=== PATIENT | female | born 1990 | race Caucasian/White ===

== ENCOUNTER 2018-11-11 07:30 | Inpatient (IN) | payer BC ==
[2018-11-11] MEDS ORDERED: Lidocaine 1% 50 ML MDV INJECT PRN (08:01)
[2018-11-11] MEDS ORDERED: Sodium Chloride 0.9% 10 ML Syringe FLUSH PRN (08:01)
[2018-11-11] MEDS ORDERED: Ondansetron 4 MG/2 ML SDV IVPUSH PRN (08:01)
[2018-11-11] MEDS ORDERED: Sodium Chloride 0.9% 2.5 ML Syringe FLUSH PRN (08:01)
[2018-11-11] MEDS ORDERED: Methylergonovine 0.2 MG/1 ML Amp IM PRN (08:01)
[2018-11-11] MEDS ORDERED: Nalbuphine 10 MG/1 ML Vial IVPUSH PRN (08:01)
[2018-11-11] MEDS ORDERED: Water For Irrigation,Sterile 1,000 ML Container IRR PRN (08:01)
[2018-11-11] MEDS ORDERED: Sodium Chloride 0.9% 10 ML SDV IV PRN (08:01)
[2018-11-11] MEDS ORDERED: Butorphanol 1 MG/ML SDV IVPUSH PRN (08:01)
[2018-11-11] MEDS ORDERED: Carboprost Tromethamine 250 MCG/1 ML Amp IM PRN (08:01)
[2018-11-11] MEDS ORDERED: Tranexamic Acid 1,000 MG in Sodium Chloride 0.9% 100 ML IV PRN (08:01)
[2018-11-11] MEDS ORDERED: Misoprostol 200 MCG Tab PO PRN (08:01)
[2018-11-11] MEDS ORDERED: Misoprostol 25 MCG (1/4 of 100 MCG) Tab VAG PRN (08:05)
[2018-11-11] MEDS ORDERED: Terbutaline 1 MG/ML SDV SUBCUT PRN (08:05)
[2018-11-11] MEDS ORDERED: Oxytocin/0.9 % Sodium Chloride 30 UNIT/500 ML BAG IV SCH ×2 (08:15)
[2018-11-11] MEDS: Lactated Ringers 1,000 ML IV SCH ×4 (10:07→18:29)
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
[2018-11-11] MEDS ORDERED: Docusate Sodium 100 MG Cap PO PRN (22:48)
[2018-11-11] MEDS ORDERED: oxyCODONE 5 MG Tab PO PRN (22:48)
[2018-11-11] MEDS ORDERED: Bisacodyl 10 MG Supp RECTAL PRN (22:48)
[2018-11-11] MEDS ORDERED: Acetaminophen 500 MG Tab PO PRN (22:48)
[2018-11-11] MEDS ORDERED: Lanolin 100% Cream 7 GM Tube TOP PRN (22:48)
[2018-11-11] MEDS ORDERED: Ibuprofen 400 MG Tab PO PRN (22:48)
[2018-11-11] MEDS ORDERED: Witch Hazel Medicated Pads 40/Jar TOP PRN (22:48)
--- NOTE | 2018-11-11 22:55 | PCM.DEL ---
L & D Note - General Info Date of Service: 11/11/18 Mother's Due Date: 11/18/18 - Delivery Note Labor: Augmented by Oxytocin Cervical Ripening Method: Misoprostil Delivery Outcome: Livebirth Presentation: Right Occiput Anterior (ESTRELLA) Nuchal Cord: None Anesthesia Type: Epidural Amniotic Fluid Description: Clear Episiotomy Type: None Laceration: 1st Degree Placenta: Intact Estimated Blood Loss: 400 Resuscitation Needed: No Score 1 min: 8 Score 5 min: 9 Delivery Comments (Free Text/Narrative):: Live female delivered at 2234 , 8/9 weight 3160g - General Info Date of Service: 11/11/18 - Patient Data Weight - Most Recent: 61.689 kg Lab Results Last 24 Hours: Laboratory Results - last 24 hr 11/11/18 11/11/18 Range/Units 08:23 08:23 WBC 12.82 H (4.0-11.0) K/uL RBC 3.72 L (4.30-5.90) M/uL Hgb 12.6 (12.0-16.0) g/dL Hct 36.8 (36.0-46.0) % MCV 98.9 H (80.0-98.0) fL MCH 33.9 H (27.0-32.0) pg MCHC 34.2 (31.0-37.0) g/dL RDW Std Deviation 52.0 (28.0-62.0) fl RDW Coeff of Lefty 14 (11.0-15.0) % Plt Count 149 L (150-400) K/uL MPV 11.80 (7.40-12.00) fL Nucleated RBC % 0.0 /100WBC Nucleated RBCs # 0 K/uL Blood Type A POSITIVE Antibody Screen NEGATIVE Med Orders - Current: Current Medications Butorphanol Tartrate (Stadol) 1 mg IVPUSH Q1H PRN PRN Reason: Pain Carboprost Tromethamine (Hemabate Ds) 250 mcg IM ASDIRECTED PRN PRN Reason: Post Hemorrhage Lactated Ringer's (Ringers, Lactated) 1,000 mls @ 150 mls/hr IV ASDIRECTED DONALD Last Admin: 11/11/18 18:29 Dose: 150 mls/hr Oxytocin/Sodium Chloride (Oxytocin 30 Unit/500 Ml-Ns) 30 unit in 500 mls @ 999 mls/hr IV TITRATE DONALD Tranexamic Acid 1,000 mg/ (Sodium Chloride) 110 mls @ 660 mls/hr IV ONETIME PRN PRN Reason: Bleeding Oxytocin/Sodium Chloride (Oxytocin 30 Unit/500 Ml-Ns) 30 unit in 500 mls @ 2 mls/hr IV TITRATE DONALD; Protocol Last Titration: 11/11/18 21:06 Dose: 12 munits/min, 12 mls/hr Lidocaine HCl (Xylocaine 1%) 50 ml INJECT ONETIME PRN PRN Reason: Laceration repair Methylergonovine Maleate (Methergine) 0.2 mg IM ASDIRECTED PRN PRN Reason: Post Hemorrhage Misoprostol (Cytotec) 200 mcg PO ONETIME PRN PRN Reason: Post Hemorrhage Misoprostol (Cytotec) 25 mcg VAG Q4H PRN PRN Reason: Cervical Ripening Last Admin: 11/11/18 08:37 Dose: 25 mcg Nalbuphine HCl (Nubain) 10 mg IVPUSH Q1H PRN PRN Reason: Pain (severe 7-10) Ondansetron HCl (Zofran) 4 mg IVPUSH Q6H PRN PRN Reason: Nausea/Vomiting Sodium Chloride (Saline Flush) 10 ml FLUSH ASDIRECTED PRN PRN Reason: Keep Vein Open Sodium Chloride (Saline Flush) 2.5 ml FLUSH ASDIRECTED PRN PRN Reason: Keep Vein Open Sodium Chloride (Normal Saline) 10 ml IV ASDIRECTED PRN PRN Reason: IV Use Sterile Water (Sterile Water For Irrigation) 1,000 ml IRR ASDIRECTED PRN PRN Reason: delivery Terbutaline Sulfate (Brethine) 0.25 mg SUBCUT ASDIRECTED PRN PRN Reason: Tacysystole Discontinued Medications Fentanyl/Bupivacaine HCl (Fgszppkw-Gjmxd-Je 2 Mcg/Ml-0.125%) Confirm Administered Dose 100 mls @ as directed .ROUTE .STVoice Assist-MED ONE Stop: 11/11/18 10:45 Fentanyl/Bupivacaine HCl (Qdirbhlk-Ayvkp-Wx 2 Mcg/Ml-0.125%) Confirm Administered Dose 100 mls @ as directed .ROUTE .STVoice Assist-MED ONE Stop: 11/11/18 19:34 - Problem List & Annotations (1) Vaginal delivery SNOMED Code(s): 257225934 Code(s): O80 - ENCOUNTER FOR FULL-TERM UNCOMPLICATED DELIVERY Status: Acute Current Visit: Yes - Problem List Review Problem List Initiated/Reviewed/Updated: Yes - My Orders Last 24 Hours: My Active Orders 11/11/18 22:48 Patient Status [ADT] Routine May Shower [RC] ASDIRECTED Up ad Priscila [RC] ASDIRECTED Vital Signs [RC] PER UNIT ROUTINE Acetaminophen [Tylenol Extra Strength] 1,000 mg PO Q4H PRN Acetaminophen [Tylenol Extra Strength] 500 mg PO Q4H PRN Benzocaine/Menthol [Dermoplast Pain Relief 20%-0.5% Murchison] 78 gm TOP ASDIRECTED PRN Bisacodyl [Dulcolax] 10 mg RECTAL ONETIME PRN Docusate Sodium [Colace] 100 mg PO BID PRN Ibuprofen [Motrin] 400 mg PO Q4H PRN Ibuprofen [Motrin] 800 mg PO Q6H PRN Lanolin [Lansinoh HPA] See Dose Instructions TOP ASDIRECTED PRN Witch Tejal [Tucks] 1 pad TOP ASDIRECTED PRN oxyCODONE 5 mg PO Q2H PRN Assess Lochia [WOMSER] Per Unit Routine Assess Uterine Involution [WOMSER] Per Unit Routine Peripheral IV Discontinue [OM.PC] Routine 11/12/18 05:11 HEMOGLOBIN/HEMATOCRIT,HH [HEME] Timed
--- NOTE | 2018-11-12 01:54 | OR ---
SURGEON: RIMMA ORTEGA DATE OF PROCEDURE:11/11/2018 PREOPERATIVE DIAGNOSIS: A 28-year-old G4, P2-0-1-3 at 39 weeks 0 days for induction of labor. POSTOPERATIVE DIAGNOSIS: A 28-year-old G4, P2-0-1-3 at 39 weeks 0 days for induction of labor. PROCEDURE: Normal spontaneous vaginal delivery. EBL: 400. IV FLUID: Pitocin running. ANESTHESIA: Epidural. NOTABLE FINDINGS: Live female delivered at 2234. score of 8 and 9, weight is 3160 g. COMPLICATIONS: None. BRIEF HISTORY: The patient is a 28-year-old G4, P2-0-1-3 at 39 weeks 0 days. GBS negative. She was requesting elective induction of labor. She was admitted for induction of labor. She received Cytotec followed by Pitocin. She made good labor progress. She was ruptured at 8cm with clear fluid and she subsequently became fully dilated. DESCRIPTION OF PROCEDURE: With the patient being fully dilated, she was encouraged to push. She delivered the head, subsequently by the anterior and posterior shoulder. The body of the infant was delivered. Delayed cord clamping was observed. The cord was clamped and cut. The cord blood gases were obtained. Placenta was delivered via controlled cord traction. Bimanual massage was done. Perineum was inspected, noted to have a very small first-degree laceration, which was not bleeding. All instruments and pad counts were correct x2. The patient tolerated the procedure well and was left in Labor and Delivery room with the parents. USMAN AZUL /[id number] MTDNelida
[2018-11-12] MEDS: Benzocaine/Menthol 20%-0.5% Spray 78 GM Cannister TOP PRN ×2 (02:29→14:16)
[2018-11-12] MEDS: Ibuprofen 800 MG Tab PO PRN ×2 (02:29→16:50)
[2018-11-12] MEDS: Acetaminophen 500 MG Tab PO PRN ×3 (04:27→20:16)
--- NOTE | 2018-11-12 07:31 | PCM48HPAN ---
Post Anesthesia Note - EVALUATION WITHIN 48HRS OF ANESTHETIC Vital Signs in Normal Range: Yes Patient Participated in Evaluation: Yes Respiratory Function Stable: Yes Airway Patent: Yes Cardiovascular Function Stable: Yes Hydration Status Stable: Yes Pain Control Satisfactory: Yes Nausea and Vomiting Control Satisfactory: Yes Mental Status Recovered: Yes Vital Signs: Last Vital Signs Temp 98.1 F 11/12/18 04:41 Pulse 75 11/12/18 04:41 Resp 15 11/12/18 04:41 BP 109/69 11/12/18 04:41 Pulse Ox 97 11/12/18 04:41
--- NOTE | 2018-11-12 10:32 | PCM.PNPP ---
- General Info Date of Service: 11/19/18 Subjective Update: doing well except some moderate cramping. Functional Status: Reports: Pain Controlled - Review of Systems General: Reports: No Symptoms HEENT: Reports: No Symptoms Pulmonary: Reports: No Symptoms Cardiovascular: Reports: No Symptoms Gastrointestinal: Reports: No Symptoms Genitourinary: Reports: No Symptoms Musculoskeletal: Reports: No Symptoms Skin: Reports: No Symptoms Neurological: Reports: No Symptoms Psychiatric: Reports: No Symptoms - Patient Data Vital Signs - Most Recent: Last Vital Signs Temp 36.9 C 11/12/18 07:40 Pulse 75 11/12/18 04:41 Resp 18 11/12/18 07:40 BP 111/62 11/12/18 07:40 Pulse Ox 98 11/12/18 07:40 Weight - Most Recent: 61.689 kg Lab Results - Last 24 Hours: Laboratory Results - last 24 hr 11/12/18 Range/Units 05:05 Hgb 11.4 L (12.0-16.0) g/dL Hct 33.8 L (36.0-46.0) % Med Orders - Current: Current Medications Acetaminophen (Tylenol Extra Strength) 500 mg PO Q4H PRN PRN Reason: Pain Acetaminophen (Tylenol Extra Strength) 1,000 mg PO Q4H PRN PRN Reason: Pain Last Admin: 11/12/18 04:27 Dose: 1,000 mg Benzocaine/Menthol (Dermoplast Pain Relief 20%-0.5% Edelstein) 78 gm TOP ASDIRECTED PRN PRN Reason: Perineal Comfort Measure Last Admin: 11/12/18 02:29 Dose: 1 can Bisacodyl (Dulcolax) 10 mg RECTAL ONETIME PRN PRN Reason: Constipation Butorphanol Tartrate (Stadol) 1 mg IVPUSH Q1H PRN PRN Reason: Pain Carboprost Tromethamine (Hemabate Ds) 250 mcg IM ASDIRECTED PRN PRN Reason: Post Hemorrhage Docusate Sodium (Colace) 100 mg PO BID PRN PRN Reason: Constipation Emollient Ointment (Lansinoh Hpa) 0 gm TOP ASDIRECTED PRN PRN Reason: Sore Nipples Last Admin: 11/12/18 02:29 Dose: 1 tube Lactated Ringer's (Ringers, Lactated) 1,000 mls @ 150 mls/hr IV ASDIRECTED DONALD Last Admin: 11/11/18 18:29 Dose: 150 mls/hr Oxytocin/Sodium Chloride (Oxytocin 30 Unit/500 Ml-Ns) 30 unit in 500 mls @ 999 mls/hr IV TITRATE DONALD Last Admin: 11/11/18 22:36 Dose: 999 mls/hr Tranexamic Acid 1,000 mg/ (Sodium Chloride) 110 mls @ 660 mls/hr IV ONETIME PRN PRN Reason: Bleeding Oxytocin/Sodium Chloride (Oxytocin 30 Unit/500 Ml-Ns) 30 unit in 500 mls @ 2 mls/hr IV TITRATE DONALD; Protocol Last Titration: 11/11/18 21:06 Dose: 12 munits/min, 12 mls/hr Ibuprofen (Motrin) 400 mg PO Q4H PRN PRN Reason: Pain Ibuprofen (Motrin) 800 mg PO Q6H PRN PRN Reason: Pain Last Admin: 11/12/18 02:29 Dose: 800 mg Lidocaine HCl (Xylocaine 1%) 50 ml INJECT ONETIME PRN PRN Reason: Laceration repair Methylergonovine Maleate (Methergine) 0.2 mg IM ASDIRECTED PRN PRN Reason: Post Hemorrhage Misoprostol (Cytotec) 200 mcg PO ONETIME PRN PRN Reason: Post Hemorrhage Misoprostol (Cytotec) 25 mcg VAG Q4H PRN PRN Reason: Cervical Ripening Last Admin: 11/11/18 08:37 Dose: 25 mcg Nalbuphine HCl (Nubain) 10 mg IVPUSH Q1H PRN PRN Reason: Pain (severe 7-10) Ondansetron HCl (Zofran) 4 mg IVPUSH Q6H PRN PRN Reason: Nausea/Vomiting Oxycodone HCl (Oxycodone) 5 mg PO Q2H PRN PRN Reason: Pain Sodium Chloride (Saline Flush) 10 ml FLUSH ASDIRECTED PRN PRN Reason: Keep Vein Open Sodium Chloride (Saline Flush) 2.5 ml FLUSH ASDIRECTED PRN PRN Reason: Keep Vein Open Sodium Chloride (Normal Saline) 10 ml IV ASDIRECTED PRN PRN Reason: IV Use Sterile Water (Sterile Water For Irrigation) 1,000 ml IRR ASDIRECTED PRN PRN Reason: delivery Terbutaline Sulfate (Brethine) 0.25 mg SUBCUT ASDIRECTED PRN PRN Reason: Tacysystole Sharla Toure (Tucks) 1 pad TOP ASDIRECTED PRN PRN Reason: comfort care Last Admin: 11/12/18 02:28 Dose: 1 tub Discontinued Medications Fentanyl/Bupivacaine HCl (Fzojkwha-Mzcyq-Qc 2 Mcg/Ml-0.125%) Confirm Administered Dose 100 mls @ as directed .ROUTE .STK-MED ONE Stop: 11/11/18 10:45 Fentanyl/Bupivacaine HCl (Mqxyuelk-Mweib-Ae 2 Mcg/Ml-0.125%) Confirm Administered Dose 100 mls @ as directed .ROUTE .STK-MED ONE Stop: 11/11/18 19:34 - Infant Interaction Infant Disposition, : in Room with Family Infant Interaction: Holding Infant Feeding: Breastfed Infant; Nursed Well Support Person: - Recovery Exam Fundal Tone: Firm Fundal Level: 2 Fingerbreadths Below Umbilicus Fundal Placement: Midline Lochia Amount: Scant, Small Lochia Color: Rubra/Red Perineum Description: Other (see below) Other Perinuem Description: Tiny first degree tear, not repaired,not bleeding Episiotomy/Laceration: Approximated Bladder Status: Voiding Urinary Elimination: Voided - Exam General: Alert, Oriented Neck: Supple Lungs: Normal Respiratory Effort Cardiovascular: Murmurs GI/Abdominal Exam: Soft, Non-Tender, Pelvis Stable Extremities: Normal Inspection, Non-Tender, No Pedal Edema Skin: Warm, Dry, Intact Neurological: No New Focal Deficit Psy/Mental Status: Normal Mood - Problem List & Annotations (1) Vaginal delivery SNOMED Code(s): 564270855 Code(s): O80 - ENCOUNTER FOR FULL-TERM UNCOMPLICATED DELIVERY Status: Acute Current Visit: Yes - Problem List Review Problem List Initiated/Reviewed/Updated: Yes - My Orders Last 24 Hours: My Active Orders 11/12/18 10:30 Ready for Discharge [RC] PER UNIT ROUTINE - Assessment Assessment:: PPD#1 after , stable minimal lochia, minimal pain, would like to go home later today. - Plan Plan:: Discharge instructions reviewed. Dismiss when 24 hours .
[2018-11-12 19:29] VITALS: BP 109/64; PULSE 63
[2018-11-13] MEDS: Acetaminophen 500 MG Tab PO PRN (00:33)
== END 2018-11-13 00:50 | disposition home or self-care (01) | DRG 560 ==
LOC: MW.OBCHECK 07:30 → MW.OB 07:31 → MW.OBCHECK 08:01 → OBSVTOIN 22:34 → MW.OB 11-12 02:16
PROVIDERS: ADMIT Obstetrics & Gynecology; ATTEND Obstetrics & Gynecology
PROC: 10E0XZZ Delivery of Products of Conception, External Approach (ICD-10-PCS; principal; 2018-11-11)
PROC: 3E033VJ Introduction of Other Hormone into Peripheral Vein, Percutaneous Approach (ICD-10-PCS; 2018-11-11)
PROC: 3E0P7VZ Introduction of Hormone into Female Reproductive, Via Natural or Artificial Opening (ICD-10-PCS; 2018-11-11)
DX: O70.0 First degree perineal laceration during delivery (principal); Z37.0 Single live birth; Z3A.39 39 weeks gestation of pregnancy
CPT/HCPCS: 36415; 51702; 59025; 59409; 85014; 85018; 85027; 86850; 86900; 86901; A9270-GY; J2590; J7120

== ENCOUNTER 2022-12-09 17:41 | Emergency (ER) | payer BC, MEDICAID ==
[2022-12-09 18:40] LABS: APPEARANCE,URINE CLEAR; BILIRUBIN,URINE NEGATIVE (NEGATIVE); COLOR,URINE YELLOW; GLUCOSE,URINE NEGATIVE (NEGATIVE); KETONES,URINE NEGATIVE (NEGATIVE); LEUKOCYTE ESTERASE,URINE NEGATIVE (NEGATIVE); NITRITE,URINE NEGATIVE (NEGATIVE); OCCULT BLOOD,URINE NEGATIVE (NEGATIVE); PROTEIN,URINE NEGATIVE (NEGATIVE); UROBILINOGEN,URINE 0.2 EU/dL (<2.0)
[2022-12-09] MEDS ORDERED: Sodium Chloride 0.9% 1,000 ML IV ONE (18:41)
[2022-12-09] MEDS ORDERED: Morphine 4 MG/ML Syringe IVPUSH ONE (18:41)
[2022-12-09] MEDS ORDERED: Ondansetron 4 MG/2 ML SDV IVPUSH ONE (18:41)
[2022-12-09 18:59] LABS: BASOPHILS ABSOLUTE AUTO 0.04 K/uL (0.00-0.20); BASOPHILS PERCENT AUTO 0.5 % (0.0-1.0); EOSINOPHILS ABSOLUTE AUTO 0.13 K/uL (0.00-0.45); EOSINOPHILS PERCENT AUTO 1.6 % (0.0-6.0); HEMOGLOBIN 15.1 g/dL (12.0-16.0); IMMATURE GRAN ABSOLUTE AUTO 0.01 K/uL (0.00-0.05); IMMATURE GRAN PERCENT AUTO 0.1 % (0.0-0.4); LYMPHOCYTES ABSOLUTE AUTO 0.31 K/uL (1.00-4.80); LYMPHOCYTES PERCENT AUTO 3.7 % (24.0-44.0); MEAN CORPUSCULAR HEMOGLOBIN 32.1 pg (28.0-32.0); MEAN CORPUSCULAR HGB CONC 35.1 g/dL (32.0-36.0); MEAN CORPUSCULAR VOLUME 91.3 fL (83.0-99.0); MONOCYTES ABSOLUTE AUTO 0.42 K/uL (0.00-0.80); MONOCYTES PERCENT AUTO 5.1 % (0.0-8.0); NEUTROPHILS ABSOLUTE AUTO 7.36 K/uL (1.80-7.70); PLATELET COUNT,PLT 225 K/uL (150-400); RED BLOOD CELL COUNT 4.71 M/uL (4.10-5.30); WHITE BLOOD CELL COUNT,WBC 8.27 K/uL (3.9-11.3)
[2022-12-09] MEDS ORDERED: Acetaminophen 325 MG Tab PO ONE (19:06)
[2022-12-09 19:26] LABS: A/G RATIO 0.9 (0.9-1.6); ALBUMIN 3.5 g/dL (3.4-5.0); BILIRUBIN TOTAL 0.3 mg/dL (0.2-1.0); CALCIUM 8.4 mg/dL (8.5-10.1); CARBON DIOXIDE,CO2 22.6 mmol/L (21.0-32.0); CREATININE 0.8 mg/dL (0.6-1.0); EST CRCL DRUG DOSING (CG) 76.34 mL/min; POTASSIUM,K 3.6 mmol/L (3.5-5.1); PROTEIN TOTAL,TP 7.3 g/dL (6.4-8.2)
[2022-12-09] MEDS ORDERED: cefTRIAXone 2 GM in Sodium Chloride 0.9% 50 ML IV ONE (19:42)
[2022-12-09] MEDS ORDERED: Iopamidol 755 MG/ML 500 ML Multipack Bottle IVPUSH ONE (19:51)
[2022-12-09 23:03] LABS: AMPHETAMINES SCREEN, URINE NEGATIVE (CUTOFF=500); BARBITURATE SCREEN,URINE NEGATIVE (CUTOFF=200); BENZODIAZEPINES SCREEN,URINE PRESUMPTIVE POSITIVE (CUTOFF=150); BUPRENORPHINE SCREEN,URINE NEGATIVE (CUTOFF=10); METHADONE SCREEN, URINE NEGATIVE (CUTOFF=200); METHAMPHETAMINES SCREEN, URINE NEGATIVE (CUTOFF=500); OXYCODONE SCREEN,URINE NEGATIVE (CUT0FF=100); PCP SCREEN,URINE NEGATIVE (CUTOFF=25); PROPOXYPHENE SCREEN,URINE NEGATIVE (CUTOFF=300); THC SCREEN,URINE 20 NG/ML PRESUMPTIVE POSITIVE (CUTOFF=50)
[2022-12-09 23:08] LABS: WBC,CSF 4 /uL (0-5)
[2022-12-09 23:09] LABS: WBC,CSF 3 /uL (0-5)
[2022-12-09] MEDS ORDERED: HYDROmorphone 1 MG/ML Syringe IVPUSH ONE (23:24)
[2022-12-10 00:03] LABS: CORONAVIRUS COVID-19 NAA POSITIVE (NEGATIVE); INFLUENZA A NAA NEGATIVE (NEGATIVE); INFLUENZA B NAA NEGATIVE (NEGATIVE); RESPIRATORY SYNCYTIAL VIR NAA NEGATIVE (NEGATIVE)
[2022-12-10 00:05] LABS: APPEARANCE CSF CLEAR; COLOR,CSF COLORLESS
[2022-12-10 00:08] LABS: RBC,CSF 1 /uL (0-0)
[2022-12-10 00:11] LABS: COLOR,CSF COLORLESS
[2022-12-10 00:12] LABS: APPEARANCE CSF CLEAR; RBC,CSF 23 /uL (0-0)
[2022-12-10 03:03] VITALS: BP 110/74; PULSE 70
== END 2022-12-10 03:02 | disposition home or self-care (01) ==
LOC: MW.ED 17:41
DX: U07.1 COVID-19 (principal); I67.1 Cerebral aneurysm, nonruptured; M54.12 Radiculopathy, cervical region
CPT/HCPCS: 0241U; 36415; 62270; 70450; 70496; 70498; 80053; 80305; 81003; 82945; 83605; 84157; 84703; 85025; 86788; 86789; 87040; 87070; 87205; 89050; 96361; 96365; 96372; 96375; 99284; A9270; J0696; J1170; J2270; J2405; J3360; J3490; J7030; Q9967

== ENCOUNTER 2024-05-13 09:20 | Emergency (ER) | payer MEDICAID ==
[2024-05-13 09:31] LABS: BASOPHILS ABSOLUTE AUTO 0.02 K/uL (0.00-0.20); BASOPHILS PERCENT AUTO 0.2 % (0.0-1.0); EOSINOPHILS ABSOLUTE AUTO 0.35 K/uL (0.00-0.45); EOSINOPHILS PERCENT AUTO 3.1 % (0.0-6.0); HEMOGLOBIN 11.9 g/dL (12.0-16.0); IMMATURE GRAN ABSOLUTE AUTO 0.13 K/uL (0.00-0.05); IMMATURE GRAN PERCENT AUTO 1.2 % (0.0-0.4); LYMPHOCYTES ABSOLUTE AUTO 1.56 K/uL (1.00-4.80); LYMPHOCYTES PERCENT AUTO 13.9 % (24.0-44.0); MEAN CORPUSCULAR HEMOGLOBIN 33.9 pg (28.0-32.0); MEAN CORPUSCULAR VOLUME 96.9 fL (83.0-99.0); MEAN PLATELET VOLUME 9.9 fL (9.4-12.3); MONOCYTES ABSOLUTE AUTO 0.76 K/uL (0.00-0.80); MONOCYTES PERCENT AUTO 6.8 % (0.0-8.0); NEUTROPHILS ABSOLUTE AUTO 8.38 K/uL (1.80-7.70); NEUTROPHILS PERCENT AUTO 74.8 % (41.0-71.0); PLATELET COUNT,PLT 189 K/uL (150-400); RED BLOOD CELL COUNT 3.51 M/uL (4.10-5.30)
[2024-05-13 09:42] VITALS: BP 126/79; PULSE 98
[2024-05-13 10:09] LABS: A/G RATIO 0.8 (0.9-1.6); ALBUMIN 2.9 g/dL (3.4-5.0); BILIRUBIN TOTAL 0.1 mg/dL (0.2-1.0); CALCIUM 8.7 mg/dL (8.5-10.1); CARBON DIOXIDE,CO2 22.2 mmol/L (21.0-32.0); CREATININE 0.5 mg/dL (0.6-1.0); EST CRCL DRUG DOSING (CG) 126.01 mL/min; MAGNESIUM 1.8 mg/dL (1.8-2.4); POTASSIUM,K 3.8 mmol/L (3.5-5.1); PROTEIN TOTAL,TP 6.6 g/dL (6.4-8.2)
[2024-05-13 10:23] LABS: PTT,PARTIAL THROMBOPLSTIN TIME 27.1 SEC (23.9-30.7)
[2024-05-13 11:39] LABS: APPEARANCE,URINE SLT CLOUDY; BILIRUBIN,URINE NEGATIVE (NEGATIVE); COLOR,URINE YELLOW; GLUCOSE,URINE NEGATIVE (NEGATIVE); KETONES,URINE NEGATIVE (NEGATIVE); LEUKOCYTE ESTERASE,URINE NEGATIVE (NEGATIVE); NITRITE,URINE NEGATIVE (NEGATIVE); OCCULT BLOOD,URINE NEGATIVE (NEGATIVE); PROTEIN,URINE NEGATIVE (NEGATIVE); UROBILINOGEN,URINE 0.2 EU/dL (<2.0)
== END 2024-05-13 12:00 | disposition left against medical advice (07) ==
LOC: MW.ED 09:20
DX: O9A.212 Injury, poisoning and certain other consequences of external causes complicating pregnancy, second trimester (principal); S39.91XA Unspecified injury of abdomen, initial encounter; O43.212 Placenta accreta, second trimester; Z79.899 Other long term (current) drug therapy; Z3A.20 20 weeks gestation of pregnancy; V49.40XA Driver injured in collision with unspecified motor vehicles in traffic accident, initial encounter; Y92.410 Unspecified street and highway as the place of occurrence of the external cause
CPT/HCPCS: 36415; 76815; 76815-26; 80053; 81003; 83690; 83735; 84703; 85025; 85384; 85730; 86900; 86901; 99284